=== PATIENT | female | born 1985 | race Hispanic/Latino ===

== ENCOUNTER 2017-08-17 12:04 | Emergency (ER) | payer MEDICAID, OTHER ==
[2017-08-17 12:26] VITALS: RESP 18
[2017-08-17] MEDS ORDERED: Sodium Chloride 0.9% 1,000 ML IV STA (12:47)
--- NOTE | 2017-08-17 13:18 | ED PDOC ---
HPI: Female Pain Time Seen by Provider: 08/17/17 12:46 Chief Complaint (Nursing): Female Genitourinary Chief Complaint (Provider): Vaginal bleeding History Per: Patient History/Exam Limitations: no limitations Onset/Duration Of Symptoms: Days (5) Additional Complaint(s): Pt reports vaginal bleeding X 5 days, using 3 pads/day, associated with crampy lower abdominal pain, lightheadedness and palpitations. Denies fever, nausea, vomiting, vaginal discharge. LMP 07/27/17. Abnormal Vaginal Bleeding: Yes Past Medical History Reviewed: Nursing Documentation, Vital Signs Vital Signs: Last Vital Signs Temp 97.0 F L 08/17/17 12:23 Pulse 92 H 08/17/17 12:42 Resp 18 08/17/17 12:23 BP 119/80 08/17/17 12:23 Pulse Ox 99 08/17/17 12:23 - Medical History PMH: No Chronic Diseases - Surgical History Surgical History: Appendectomy, - Family History Family History: States: Unknown Family Hx - Social History Current smoker - smoking cessation education provided: No Alcohol: Occasional - Immunization History Hx Tetanus Toxoid Vaccination: No Hx Influenza Vaccination: No Hx Pneumococcal Vaccination: No - Home Medications Home Medications: Ambulatory Orders Medication Instructions Recorded Ibuprofen [Motrin] 600 mg PO TID #15 tab 10/31/15 Oseltamivir [Tamiflu] 1 cap PO BID #10 cap 10/31/15 - Allergies Allergies/Adverse Reactions: Allergies Allergy/AdvReac Type Severity Reaction Status Date / Time No Known Allergies Allergy Verified 05/02/15 12:41 Review of Systems Constitutional: Negative for: Fever, Chills Eyes: Negative for: Vision Change Cardiovascular: Positive for: Palpitations. Negative for: Chest Pain Respiratory: Negative for: Cough, Shortness of Breath Gastrointestinal: Positive for: Abdominal Pain. Negative for: Nausea, Vomiting , Diarrhea Genitourinary Female: Positive for: Vaginal Bleeding. Negative for: Dysuria, Hematuria, Vaginal Discharge Musculoskeletal: Negative for: Neck Pain, Back Pain Skin: Negative for: Rash, Lesions Neurological: Positive for: Dizziness (Lightheadedness). Negative for: Weakness , Numbness, Altered Mental Status, Headache Physical Exam - Reviewed Nursing Documentation Reviewed: Yes Vital Signs Reviewed: Yes - Physical Exam Appears: Positive for: Well, No Acute Distress Head Exam: Positive for: ATRAUMATIC, NORMAL INSPECTION Skin: Positive for: Normal Color, Warm, Dry Eye Exam: Positive for: Normal appearance, EOMI, PERRL Neck: Positive for: Normal, Painless ROM, Supple Cardiovascular/Chest: Positive for: Regular Rate, Rhythm. Negative for: Tachycardia Respiratory: Positive for: Normal Breath Sounds Gastrointestinal/Abdominal: Positive for: Normal Exam, Bowel Sounds, Soft. Negative for: Tenderness, Guarding, Rebound Back: Positive for: Normal Inspection. Negative for: L CVA Tenderness, R CVA Tenderness Extremity: Positive for: Normal ROM Neurologic/Psych: Positive for: Alert, Oriented - Laboratory Results Result Diagrams: 08/17/17 14:21 08/17/17 14:21 - ECG O2 Sat by Pulse Oximetry: 99 Medical Decision Making Medical Decision Makin yo with vaginal bleeding and palpitations. - labs - EKG - pelvic ultrasound - IVF Accession No. : [id number] Patient Name / ID : PAIGE Rubalcava / [id number] Exam Date : 08/17/2017 13:20:07 ( Approved ) Study Comment : Sex / Age : F / 31Y Creator : Clint Manuel MD Dictator : Clint Manuel MD [employer]key Locomotive Engineer : [employer] Maintainer : Clint Manuel MD Approver2 : Report Date : 08/17/2017 14:16:42 My Comment : HISTORY: Vag bleeding COMPARISON: None available. TECHNIQUE: Transvaginal pelvic ultrasound was performed in longitudinal and transverse projections. FINDINGS: UTERUS: Measures 7.6 x 4.7 x 4.7 cm. Uterus is retroverted and mildly retroflexed without focal myometrial lesion appreciable. ENDOMETRIUM: Measures 3.7 mm in diameter. Unremarkable. CERVIX: No cervical abnormality identified. RIGHT OVARY: Measures 2.4 x 1.4 x 1.5 cm. No solid mass. Normal flow. LEFT OVARY: Measures 3.3 x 2.4 x 2.9 cm. No solid mass. Normal flow. Abdominal follicle or follicular cyst measures 2.1 x 2.0 x 2.2 cm at the left ovary. FREE FLUID: No significant free fluid noted. OTHER FINDINGS: None. IMPRESSION: Retroverted and mildly retroflexed uterus without focal myometrial or endometrial lesion appreciable. 2.2 cm left ovarian dominant follicle or follicular cyst identified. Exam otherwise unremarkable. Disposition - Clinical Impression Clinical Impression: Abnormal vaginal bleeding - Patient ED Disposition Is Patient to be Admitted: No - Disposition Disposition: Routine/Home Disposition Time: 14:54 Condition: STABLE Instructions: Dysfunctional Uterine Bleeding (ED) Forms: [employer] (Maltese)
--- NOTE | 2017-08-17 14:18 | US ---
HISTORY: Vag bleeding COMPARISON: None available. TECHNIQUE: Transvaginal pelvic ultrasound was performed in longitudinal and transverse projections. FINDINGS: UTERUS: Measures 7.6 x 4.7 x 4.7 cm. Uterus is retroverted and mildly retroflexed without focal myometrial lesion appreciable. ENDOMETRIUM: Measures 3.7 mm in diameter. Unremarkable. CERVIX: No cervical abnormality identified. RIGHT OVARY: Measures 2.4 x 1.4 x 1.5 cm. No solid mass. Normal flow. LEFT OVARY: Measures 3.3 x 2.4 x 2.9 cm. No solid mass. Normal flow. Abdominal follicle or follicular cyst measures 2.1 x 2.0 x 2.2 cm at the left ovary. FREE FLUID: No significant free fluid noted. OTHER FINDINGS: None. IMPRESSION: Retroverted and mildly retroflexed uterus without focal myometrial or endometrial lesion appreciable. 2.2 cm left ovarian dominant follicle or follicular cyst identified. Exam otherwise unremarkable.
[2017-08-17 14:36] LABS: BASO # 0.1 K/uL (0.0-0.2); BASO % 0.4 % (0.0-2.0); EOS # 0.2 K/uL (0.0-0.7); EOS % 1.2 % (0.0-4.0); HEMOGLOBIN 14.4 g/dL (12.0-16.0); LYMPH # 3.4 K/uL (1.0-4.3); LYMPH % 23.8 % (20.0-40.0); MEAN CELL VOLUME 92.4 fl (81.0-99.0); MEAN CORPUSCULAR HEMOGLOBIN 31.2 pg (27.0-31.0); MEAN CORPUSCULAR HGB CONC 33.8 g/dL (33.0-37.0); MEAN PLATELET VOLUME 8.5 fl (7.2-11.7); MONO # 0.7 K/uL (0.0-0.8); MONO % 5.1 % (0.0-10.0); NEUT # 9.8 K/uL (1.8-7.0); NEUT % 69.5 % (50.0-75.0); RBC 4.6 Mil/uL (3.80-5.20); WHITE BLOOD COUNT 14.1 K/uL (4.8-10.8)
[2017-08-17 14:38] LABS: ALB/GLOB RATIO 1.2 (1.0-2.1); ALBUMIN 4.1 g/dL (3.5-5.0); ALT/SGPT 35 U/L (9-52); AST/SGOT 29 U/L (14-36); BLOOD UREA NITROGEN 13 mg/dl (7-17); CALCIUM 9.3 mg/dL (8.4-10.2); GFR AFRICAN-AMERICAN > 60; GFR NON-AFRICAN AMERICAN > 60
[2017-08-17 14:58] LABS: INR 0.9 (0.9-1.2); PARTIAL THROMBOPLASTIN TIME 28.5 Seconds (25.6-37.1); PROTHROMBIN TIME 10.1 Seconds (9.8-13.1)
[2017-08-17 15:25] VITALS: BP 122/76; PULSE 87; TEMP 98; O2SAT 100
--- NOTE | 2017-08-17 18:56 | CARD ---
APPROVED REPORT EKG Measurement Heart [id number] <Conclusion> Poor data quality, interpretation may be adversely affected Normal sinus rhythm Normal ECG
== END 2017-08-17 15:23 | disposition home or self-care (01) ==
LOC: H.ER 12:04
DX: N83.292 Other ovarian cyst, left side (principal); N93.9 Abnormal uterine and vaginal bleeding, unspecified; R00.2 Palpitations
CPT/HCPCS: 76830; 76856; 80053; 81025; 85025; 85610; 85730; 86850; 86900; 93005; 99283; J7040